=== PATIENT | female | born 1960 | race Caucasian/White ===

== ENCOUNTER 2021-12-14 05:44 | Day surgery (SDC) | payer MEDICARE, OTHER ==
[~2021-12-14] VITALS: Ht 165.1 cm; Wt 64.0 kg
[~2021-12-14 05:44] MED LIST: ALBU90OI INH; ALPR1 PO; AMLO5 PO; ATOR80 PO; CLOP75 PO; Chantix1 MG PO; ESCI10 PO; EZET10 PO; Isosorbide Mono30 MG PO; LISI20 PO; MELATONIN5 M1 PO; METO100ER PO; REPATHA SU140 MG/1 M SC; VITAMIN B-122000 MC1 PO; Vitamin D1000 UNI1 PO
--- NOTE | 2021-12-14 12:23 | NUR ---
PT IV DC'D INTACT, PT DC'D BY DENTON VILLARREAL DRIVING PT HOME
== END 2021-12-14 12:36 | disposition home or self-care (01) ==
LOC: MHTC 05:44
DX: E11.51 Type 2 diabetes mellitus with diabetic peripheral angiopathy without gangrene (principal); I70.213 Atherosclerosis of native arteries of extremities with intermittent claudication, bilateral legs; E78.5 Hyperlipidemia, unspecified; I11.0 Hypertensive heart disease with heart failure; I50.42 Chronic combined systolic (congestive) and diastolic (congestive) heart failure; I25.2 Old myocardial infarction; F41.9 Anxiety disorder, unspecified; H54.8 Legal blindness, as defined in USA; F17.200 Nicotine dependence, unspecified, uncomplicated
CPT/HCPCS: 37221; 37223; 37227; 75625; 75716; 75774; 76937; 99152; 99153; C1714; C1725; C1760; C1769; C1874; C1876; C1887; C1894; C2623; J0360; J1644; J2250; J2405; J3010; J7030; J7040; Q9967

== ENCOUNTER 2021-12-28 06:50 | Day surgery (SDC) | payer MEDICARE, OTHER ==
[~2021-12-28] VITALS: Ht 165.1 cm; Wt 64.9 kg
[2021-12-28] MEDS ORDERED: OMEP20ER PO (07:27)
[2021-12-28] MEDS ORDERED: ALBU90OI INH (07:28)
--- NOTE | 2021-12-28 12:34 | NUR ---
PT HAS BEEN UP WALKING RECOVERY ROOM. GROIN AND PT SITE BOTH REMAIN STABLE. DISCHARGE INSTRUCTIONS REVIEWED WITH PT, VERBALIZES UNDERSTANDING OF INSTRUCTIONS. SALINE LOCK REMOVED WITH CATHETER INTACT. PT DISCHARGED PER W/C WITH ONE STAFF. TO PRIVATE VEHICLE.
== END 2021-12-28 12:30 | disposition home or self-care (01) ==
LOC: MHTC 06:50
DX: E11.51 Type 2 diabetes mellitus with diabetic peripheral angiopathy without gangrene (principal); I70.213 Atherosclerosis of native arteries of extremities with intermittent claudication, bilateral legs; I11.0 Hypertensive heart disease with heart failure; E78.5 Hyperlipidemia, unspecified; I25.10 Atherosclerotic heart disease of native coronary artery without angina pectoris; I50.42 Chronic combined systolic (congestive) and diastolic (congestive) heart failure; F17.210 Nicotine dependence, cigarettes, uncomplicated
CPT/HCPCS: 37227; 75716; 75774; 76937; 85347; 99152; 99153; A9270; C1714; C1725; C1760; C1769; C1874; C1887; C1894; C2623; J1644; J2250; J2310; J2405; J3010; J7030; J7040; Q9967